=== PATIENT | female | born 1955 | race Caucasian/White ===

== ENCOUNTER 2020-05-23 16:27 | Inpatient (IN) | payer MEDICARE, BC ==
[~2020-05-23] VITALS: Ht 157.5 cm; Wt 50.3 kg
[2020-05-23 18:29] LABS: ANION GAP 14.4 mmol/L (8-16); CALCIUM 8.6 mg/dL (8.5-10.1); CARBON DIOXIDE 22.4 mmol/L (21.0-32.0); POTASSIUM - SERUM 4.8 mmol/L (3.5-5.1)
[2020-05-23 18:35] LABS: ALBUMIN 2.9 g/dL (3.4-5.0); BILIRUBIN - TOTAL 0.29 mg/dL (0.2-1.3); PROTEIN - SERUM 5.4 g/dL (6.4-8.2)
[2020-05-23 19:09] LABS: BASOPHILS 0.1 % (0-2); EOSINOPHILS 1.5 % (0-7); HEMATOCRIT 34.9 % (36.0-48.0); HEMOGLOBIN 11.3 g/dL (12-16); IMMATURE GRANULOCYTES 0.1 % (0-5); LYMPHOCYTE ABS# 2.88 10x3/uL (1.18-3.74); LYMPHOCYTES 36.7 % (15-50); MCH 29.8 pg (26.0-34.0); MCHC 32.4 g/dL (31.0-37.0); MCV 92.1 fL (80.0-100.0); MEAN PLATELET VOLUME 8.9 fL (7.4-10.4); MONOCYTES 9.6 % (2-11); NEUTROPHIL ABS# 4.08 10x3/uL (1.56-6.13); PLATELET COUNT 141 10x3/uL (130-400); RBC 3.79 10x6/uL (4.00-5.40); RDW 15.9 % (11.5-14.5); WBC 7.9 10x3/uL (4.8-10.8)
[2020-05-23 19:35] VITALS: BP 110/77
[2020-05-23 22:19] LABS: APTT 22.5 SECONDS (22.8-39.4); INR 1.17 (0.85-1.17); PROTIME 13.8 SECONDS (11.6-15.0)
[2020-05-23 22:22] LABS: % SATURATION 12 % (15-55); IRON 34 ug/dl (35-150); TOTAL IRON BIND CAPACITY 262 ug/dl (260-445); UNSAT IRON BIND CAPACITY 228 ug/dl (150-375)
[2020-05-23 22:52] LABS: MAGNESIUM - SERUM 1.8 mg/dL (1.8-2.4)
[2020-05-24] VITALS (13 sets, daily range): BP systolic 112–147; BP diastolic 0–82; Ht 157.5 cm; Wt 50.3 kg
[2020-05-24] MEDS ORDERED: XIFAXAN550 MG PO (02:12)
[2020-05-24] MEDS ORDERED: PREDNISONE5 MG PO (02:13)
[2020-05-24] MEDS ORDERED: VENTOLIN HFA [SP8 GM (02:14)
[2020-05-24] MEDS ORDERED: CELEXA10 MG PO (02:14)
[2020-05-24] MEDS ORDERED: NEURONTIN600 MG PO (02:31)
[2020-05-24] MEDS ORDERED: FOLIC ACID1 MG PO (02:31)
[2020-05-24] MEDS ORDERED: MAG-OX 400 MG400 MG PO (02:32)
[2020-05-24] MEDS ORDERED: CARAFATE1 G PO (02:33)
[2020-05-24] MEDS ORDERED: BACTRIM 400-801 TAB PO (02:34)
[2020-05-24] MEDS ORDERED: ULTRAM50 MG PO (02:34)
[2020-05-24] MEDS ORDERED: VALCYTE450 MG PO (02:35)
--- NOTE | 2020-05-24 04:16 | NUR ---
PATIENT ALLOWED IBRAHIM PLACEMENT AFTER ADMINISTRATION OF ATIVAN. 16 FR IBRAHIM PLACED WITH STERILE TECHNIQUE WITHOUT COMPLICATION. URINE SAMPLE COLLECTED. PATIENT REPORTED MINIMAL PAIN WITH INSERTION. RESTING COMFORTABLY AT THIS TIME. MED LIST BROUGHT BY , UPDATED IN COMPUTER. COPY PLACED IN CHART, ORIGINAL RETURNED TO PATIENT. PAGED CONSULTS FOR GI, NEPHRO. WILL.CONTINUE TO MONTR.
[2020-05-24 05:07] LABS: BASOPHILS 0.3 % (0-2); EOSINOPHILS 2.4 % (0-7); HEMATOCRIT 29.2 % (36.0-48.0); HEMOGLOBIN 9.3 g/dL (12-16); LYMPHOCYTES 41.2 % (15-50); MCH 29.4 pg (26.0-34.0); MCHC 31.8 g/dL (31.0-37.0); MCV 92.4 fL (80.0-100.0); MEAN PLATELET VOLUME 8.7 fL (7.4-10.4); MONOCYTES 10.6 % (2-11); NEUTROPHIL ABS# 2.87 10x3/uL (1.56-6.13); NEUTROPHILS 45.5 % (40-80); PLATELET COUNT 123 10x3/uL (130-400); RBC 3.16 10x6/uL (4.00-5.40); WBC 6.3 10x3/uL (4.8-10.8)
[2020-05-24 05:23] LABS: BILIRUBIN NEGATIVE (NEGATIVE); KETONE NEGATIVE (NEGATIVE); NITRITE NEGATIVE (NEGATIVE); UROBILINOGEN NORMAL mg/dL (< 2)
[2020-05-24 05:24] LABS: BACTERIA MODERATE HPF (NONE SEEN); SQUAMOUS EPITHELIAL 0-5 HPF (0-4); WHITE CELLS - URINE 0-5 HPF (0-4)
[2020-05-24 05:37] LABS: ANION GAP 12.6 mmol/L (8-16); BILIRUBIN - TOTAL 0.29 mg/dL (0.2-1.3); CALCIUM 8.1 mg/dL (8.5-10.1); CARBON DIOXIDE 23.7 mmol/L (21.0-32.0); CREATININE - SERUM 1.8 mg/dL (0.6-1.3); MAGNESIUM - SERUM 1.6 mg/dL (1.8-2.4); POTASSIUM - SERUM 4.3 mmol/L (3.5-5.1); PROTEIN - SERUM 6.1 g/dL (6.4-8.2)
[2020-05-24 05:47] LABS: ALBUMIN 3.9 g/dL (3.4-5.0)
--- NOTE | 2020-05-24 06:39 | NUR ---
800CC DRAINED FROM IBRAHIM CATHETER AFER PLACEMENT.
--- NOTE | 2020-05-24 11:25 | NUR ---
PATIENT TAKEN TO IR FOR THORACENTISIS
--- NOTE | 2020-05-24 12:16 | NUR ---
PATIENT RETURNED TO HER ROOM FORM IR
--- NOTE | 2020-05-24 13:29 | NUR ---
PATIENT C/O NAUSEA NOTIFIED MERCHANT MILLER STATED SHE WILL ORDER HER SOMETHIN IN ADDITION TO THE ZOFRAN INFUSION
[2020-05-24 13:36] LABS: PROTEIN - BODY FLUID 3.2 G/DL
[2020-05-24 15:29] LABS: MACROPHAGES BF 8 %; NEUT - BF 85 %
[2020-05-25 00:38] VITALS: BP 157/73
--- NOTE | 2020-05-25 01:38 | NUR ---
PATIENT VOMITING WITH ZOFRAN DRIP. ORDERED RECIEVED FOR PHENERGAN IM X1. ADMINISTERED, PATIENT REPORTS RELIEF. MEDICATED FOR PAIN PER ORDERS. RESTING COMFORTABLY AT THIS TIME.
[2020-05-25 04:57] VITALS: BP 132/70
[2020-05-25 06:26] LABS: BASOPHILS 0.1 % (0-2); EOSINOPHILS 1.4 % (0-7); IMMATURE GRANULOCYTES 0.1 % (0-5); LYMPHOCYTE ABS# 1.94 10x3/uL (1.18-3.74); LYMPHOCYTES 26.6 % (15-50); MCH 29.7 pg (26.0-34.0); MCHC 32.2 g/dL (31.0-37.0); MCV 92.4 fL (80.0-100.0); MEAN PLATELET VOLUME 8.8 fL (7.4-10.4); MONOCYTES 8.8 % (2-11); PLATELET COUNT 141 10x3/uL (130-400); RDW 15.7 % (11.5-14.5); WBC 7.3 10x3/uL (4.8-10.8)
[2020-05-25 06:28] LABS: HEMATOCRIT 35.1 % (36.0-48.0); HEMOGLOBIN 11.3 g/dL (12-16)
[2020-05-25 07:02] LABS: ALBUMIN 3.3 g/dL (3.4-5.0); ANION GAP 18.2 mmol/L (8-16); BILIRUBIN - TOTAL 0.33 mg/dL (0.2-1.3); CALCIUM 8.4 mg/dL (8.5-10.1); CARBON DIOXIDE 19.1 mmol/L (21.0-32.0); CREATININE - SERUM 1.5 mg/dL (0.6-1.3); MAGNESIUM - SERUM 1.6 mg/dL (1.8-2.4); POTASSIUM - SERUM 4.3 mmol/L (3.5-5.1); PROTEIN - SERUM 5.3 g/dL (6.4-8.2)
[2020-05-25 07:08] VITALS: BP 183/99
[2020-05-25 11:52] VITALS: BP 176/92
--- NOTE | 2020-05-25 14:28 | NUR ---
PATIENT REFUSED MEDS STATES LONG HER STOMACH IS HURTING SHE CAN'T TAKE ANY MEDS. C/O ABD REBECCAS MARTIRIN GIVEN PER MD ORDER.
[2020-05-25 15:34] VITALS: BP 176/89
--- NOTE | 2020-05-25 19:41 | NUR ---
PATIENT REFUSED PO MEDICATION EXCEPT PAIN MEDICATION. SAID SHE COULD NOT TOLERATE DUE TO UNRELIEVED NAUSEA. ZOFRAN DRIP INFUSING TO LEFT ARM WITH NS FLUIDS. ALSO STATES PAIN IS UNRELIEVED WITH DILAUDID. PIV TO RIGHT WRIST LEAKING, D/C'D, CATHETER INTACT. SISTER AT BEDSIDE. WILL CONTINUE TO MONITOR.
[2020-05-25 20:02] VITALS: BP 140/65
--- NOTE | 2020-05-25 21:52 | NUR ---
PATIENT REQUESTED MEDICATION FOR SLEEP. RECIEVED ORDER FOR MELATONIN. ADMINISTERED WITH PRN LEVSIN FOR NAUSEA. WILL CONTINUE TO MONITOR.
--- NOTE | 2020-05-25 22:20 | NUR ---
PATIENT SISTER SUKUMAR RODRIGUEZ REQUESTED NUMBER IN SYSTEM IN CASE BROTHER CANT BE REACHED. [phone]
--- NOTE | 2020-05-25 22:30 | NUR ---
PATIENT'S SISTER REPORTS THAT THEIR OTHER SISTER RECENTLY FROM PERITONEAL CANCER AND EXPRESSED CONCERNS THAT THE PATIENT MIGHT ALSO SUFFER FROM THE SAME. RECOMMENDED THAT THEY DISCUSS THIS WITH THE MD. WILL PASS ON TO DAY SHIFT SO THEY ARE AWARE OF FAMILY HX.
[2020-05-26 00:41] VITALS: BP 130/86
--- NOTE | 2020-05-26 00:51 | NUR ---
PATIENT AWAKE BUT DROWSY. ORIENTED TO PERSON, PLACE AND SITUATION. GAIT UNSTEADY. SLURRED SPEECH AND SOME DIFFICULTY SELECTING WORDS NOTED. FLUIDS INFUSING TO PIV TO RIGHT AC. ON 2L NASAL CANNULA. BED ALARM ON. BED IN LOW POSITION. CALL LIGHT IN REACH. OREINTED TO ROOM. FALL EDUCATION PROVIDED.
[2020-05-26 04:52] VITALS: BP 162/69
[2020-05-26 06:23] LABS: BASOPHILS 0.2 % (0-2); EOSINOPHILS 2.5 % (0-7); HEMATOCRIT 34.2 % (36.0-48.0); IMMATURE GRANULOCYTES 0.3 % (0-5); LYMPHOCYTE ABS# 1.27 10x3/uL (1.18-3.74); LYMPHOCYTES 19.6 % (15-50); MCH 29.6 pg (26.0-34.0); MCHC 32.2 g/dL (31.0-37.0); MCV 92.2 fL (80.0-100.0); MEAN PLATELET VOLUME 8.6 fL (7.4-10.4); MONOCYTES 10.8 % (2-11); NEUTROPHIL ABS# 4.33 10x3/uL (1.56-6.13); NEUTROPHILS 66.6 % (40-80); PLATELET COUNT 117 10x3/uL (130-400); RBC 3.71 10x6/uL (4.00-5.40); RDW 15.8 % (11.5-14.5); WBC 6.5 10x3/uL (4.8-10.8)
[2020-05-26 06:52] LABS: ALBUMIN 2.8 g/dL (3.4-5.0); ANION GAP 15.5 mmol/L (8-16); BILIRUBIN - TOTAL 0.3 mg/dL (0.2-1.3); CARBON DIOXIDE 19.5 mmol/L (21.0-32.0); CREATININE - SERUM 1.4 mg/dL (0.6-1.3); MAGNESIUM - SERUM 1.5 mg/dL (1.8-2.4); PROTEIN - SERUM 4.9 g/dL (6.4-8.2)
--- NOTE | 2020-05-26 08:45 | NUR ---
ASSESSMENT PER FLOW SHEET. PATIENT IS WITHOUT DISTRESS. COMPLAINS OF LOWER ABDOMINAL PAIN AND WANTS PAIN MEDS WHEN SHE CAN HAVE THEM.MONITOR FOR NEEDS.
[2020-05-26 09:33] VITALS: BP 141/75
[2020-05-26 12:23] VITALS: BP 132/64
[2020-05-26] MEDS ORDERED: REGLAN5 MG PO (14:46)
[2020-05-26] MEDS ORDERED: NYSTATIN100000 UN4 PO (14:46)
[2020-05-26] MEDS ORDERED: CARDIZEM30 MG PO (14:47)
[2020-05-26] MEDS ORDERED: IMIPRAMINE10 MG PO (14:48)
[2020-05-26] MEDS ORDERED: ZOFRAN ODT4 MG/UDTAB PO (14:48)
[2020-05-26] MEDS ORDERED: LEVSINEX/LEV0.375 M1 PO (14:49)
[2020-05-26] MEDS ORDERED: TACROLIMUS ANHYD1 MG PO ×2 (14:50→14:51)
[2020-05-26] MEDS ORDERED: CELEXA10 MG PO (14:55)
--- NOTE | 2020-05-26 15:05 | NUR ---
MED REC UPDATED WITH PATIENT AND FAMILY.
[2020-05-26 16:00] VITALS: BP 140/74
--- NOTE | 2020-05-26 17:30 | NUR ---
REPORTS PASSING GAS. SHE IS WITHOUT CHANGE FROM INITIAL ASSESSMENT. CONT PLAN OF CARE
[2020-05-26 19:44] VITALS: BP 159/87
--- NOTE | 2020-05-26 22:53 | NUR ---
PATIENT CONTINUES TO REPORT PAIN AND NAUSEA. NEW MEDICATION REVIEWED WITH PATIENT. ATE SOME CRACKERS A BEDTIME SNACK, TOLERATED WELL. WILL CONTINUE TO MONITOR.
[2020-05-27 08:36] VITALS: BP 124/67
--- NOTE | 2020-05-27 09:10 | NUR ---
MD ORDERED BLADDER SCAN FOR PATIENT. NOTIFIED MD FINANCE VICE PRESIDENT THAT PATIENT HAS IBRAHIM IN PLACE SINCE ADMISSION. NO NEW ORDERS.
[2020-05-27 10:35] LABS: ALBUMIN 2.5 g/dL (3.4-5.0); BILIRUBIN - TOTAL 0.16 mg/dL (0.2-1.3); CALCIUM 8.2 mg/dL (8.5-10.1); CARBON DIOXIDE 23.4 mmol/L (21.0-32.0); CREATININE - SERUM 1.7 mg/dL (0.6-1.3); MAGNESIUM - SERUM 1.6 mg/dL (1.8-2.4); PROTEIN - SERUM 5.3 g/dL (6.4-8.2)
[2020-05-27 10:36] LABS: ANION GAP 9.8 mmol/L (8-16); POTASSIUM - SERUM 3.2 mmol/L (3.5-5.1)
[2020-05-27 10:37] LABS: BASOPHILS 0.1 % (0-2); EOSINOPHILS 3.6 % (0-7); HEMATOCRIT 33.1 % (36.0-48.0); HEMOGLOBIN 10.7 g/dL (12-16); IMMATURE GRANULOCYTES 0.3 % (0-5); LYMPHOCYTES 25.4 % (15-50); MCH 29.9 pg (26.0-34.0); MCHC 32.3 g/dL (31.0-37.0); MCV 92.5 fL (80.0-100.0); MONOCYTES 12.1 % (2-11); NEUTROPHIL ABS# 3.91 10x3/uL (1.56-6.13); NEUTROPHILS 58.5 % (40-80); PLATELET COUNT 124 10x3/uL (130-400); RBC 3.58 10x6/uL (4.00-5.40); RDW 15.9 % (11.5-14.5); WBC 6.7 10x3/uL (4.8-10.8)
[2020-05-27 12:26] VITALS: BP 156/75
--- NOTE | 2020-05-27 12:40 | NUR ---
PT C/O ABD DISTENTION AND NO URINE OUTPUT IBRAHIM CURRENLTY HAS 100ML IN HER BAG. BLADDER SCAN DONE AND RESULTS OF 45ML IN BLADDER. INFORMED PATEINT AND FAMILY I WILL NOTIFY MD OF CONCERNS.
--- NOTE | 2020-05-27 13:38 | NUR ---
PATIENT VICE PRESIDENT OF BUSINESS DEVELOPMENT TO WALK IN [place] 250 FEET.
--- NOTE | 2020-05-27 14:00 | NUR ---
NOTIFIED LIVESTOCK HAULIER OF PATIENT C/O ABD DISTENTION AND DISCOMFORT. FAMILY REQUESTING ANOTHER PARACENTISIS TO REMOVE FLUID FROM HER STOMACH. LIVESTOCK HAULIER STATES SHE WILL ORDER A ABD X RAY AND NOTIFY IR. PATIENT AND FAMILY NOTIFIED.
--- NOTE | 2020-05-27 14:15 | NUR ---
Nutrition follow-up: Pt receiving a regular diet; po intake continues to be poor due to nausea, vomiting Abdomen is distended and uncomfortable per nurse Labs reviewed Wt: 111# +BM May need to start ProcalAmine PPN @ 50 ml/hr due to pts poor po intake RDN follow-up: 05/29/20
[2020-05-27 17:00] VITALS: BP 128/76
--- NOTE | 2020-05-27 19:36 | NUR ---
PATIENT BP 228/78. HR 83. NOTIFIED CLOCK MAKER. SEE NEW ORDERS. WILL RECHECK BP AFTER MED ADMINISTRATION.
[2020-05-27 20:00] VITALS: BP 133/61
[2020-05-28 04:00] VITALS: BP 118/61
[2020-05-28 06:12] LABS: BASOPHILS 0.2 % (0-2); EOSINOPHILS 3.6 % (0-7); HEMATOCRIT 28.1 % (36.0-48.0); HEMOGLOBIN 8.9 g/dL (12-16); IMMATURE GRANULOCYTES 0.2 % (0-5); LYMPHOCYTE ABS# 1.66 10x3/uL (1.18-3.74); LYMPHOCYTES 31.8 % (15-50); MCH 29.3 pg (26.0-34.0); MCHC 31.7 g/dL (31.0-37.0); MCV 92.4 fL (80.0-100.0); MEAN PLATELET VOLUME 8.9 fL (7.4-10.4); MONOCYTES 11.3 % (2-11); NEUTROPHIL ABS# 2.76 10x3/uL (1.56-6.13); NEUTROPHILS 52.9 % (40-80); PLATELET COUNT 118 10x3/uL (130-400); RBC 3.04 10x6/uL (4.00-5.40); RDW 16.3 % (11.5-14.5); WBC 5.2 10x3/uL (4.8-10.8)
[2020-05-28 06:40] LABS: ALBUMIN 2.1 g/dL (3.4-5.0); ANION GAP 10.9 mmol/L (8-16); BILIRUBIN - TOTAL 0.12 mg/dL (0.2-1.3); CALCIUM 7.9 mg/dL (8.5-10.1); CARBON DIOXIDE 21.6 mmol/L (21.0-32.0); CREATININE - SERUM 1.8 mg/dL (0.6-1.3); MAGNESIUM - SERUM 1.9 mg/dL (1.8-2.4); POTASSIUM - SERUM 3.5 mmol/L (3.5-5.1); PROTEIN - SERUM 4.5 g/dL (6.4-8.2)
[2020-05-28 08:26] VITALS: BP 97/57
[2020-05-28 12:43] VITALS: BP 140/78
--- NOTE | 2020-05-28 14:08 | NUR ---
SPOKE WITH ERNIE PINZON CHIEF TRANSFER AND PUMPHOUSE OPERATOR- PT FEELING BETTER AFTER BM- HOLD PARA FOR NOW. INSTRUCTED ERNIE WE WERE AVAILABLE FOR HER NEEDS.
--- NOTE | 2020-05-28 15:08 | NUR ---
WALKED 3 TIMES WITH FAMILY ALREADY WILL OFFER TO WALK HER TOMRROW
--- NOTE | 2020-05-28 16:10 | NUR ---
SPOKE WITH IR REGARDING PATIENT C/O OF DISTENTION AND REQUESTING TO HAVE FLUID REMOVED FROM HER ABD. IR NURSE TO TALK TO PATIENT. WILL CALL TO GET ORDER FOR ULTRASOUND TO CHECK FOR ABD FLUID.
--- NOTE | 2020-05-28 16:16 | NUR ---
NOTIFIED SILK OPENER OF PATIENT C/O PAIN AND DISTENTION NEW ORDER FOR ULTRASOUND AND INCREASE PAIN MEDICATIONS TO Q4HRS.
[2020-05-28 17:45] VITALS: BP 130/91
[2020-05-28 20:00] VITALS: BP 124/64
[2020-05-29] VITALS (11 sets, daily range): BP systolic 111–155; BP diastolic 54–74
[2020-05-29 06:25] LABS: BASOPHILS 0.2 % (0-2); EOSINOPHILS 2.9 % (0-7); HEMATOCRIT 29.4 % (36.0-48.0); HEMOGLOBIN 9.3 g/dL (12-16); IMMATURE GRANULOCYTES 0.3 % (0-5); LYMPHOCYTE ABS# 2.08 10x3/uL (1.18-3.74); LYMPHOCYTES 33.2 % (15-50); MCH 29.7 pg (26.0-34.0); MCHC 31.6 g/dL (31.0-37.0); MCV 93.9 fL (80.0-100.0); MEAN PLATELET VOLUME 9.2 fL (7.4-10.4); NEUTROPHIL ABS# 3.22 10x3/uL (1.56-6.13); NEUTROPHILS 51.4 % (40-80); PLATELET COUNT 124 10x3/uL (130-400); RBC 3.13 10x6/uL (4.00-5.40); RDW 16.5 % (11.5-14.5); WBC 6.3 10x3/uL (4.8-10.8)
[2020-05-29 06:56] LABS: ALBUMIN 2.2 g/dL (3.4-5.0); CALCIUM 7.8 mg/dL (8.5-10.1); CARBON DIOXIDE 21.1 mmol/L (21.0-32.0); PROTEIN - SERUM 4.3 g/dL (6.4-8.2)
[2020-05-29 06:58] LABS: BILIRUBIN - TOTAL 0.08 mg/dL (0.2-1.3); POTASSIUM - SERUM 4.1 mmol/L (3.5-5.1)
--- NOTE | 2020-05-29 08:00 | NUR ---
RECIEVED BEDSIDE REPORT. PATIENT IN BED DENIES NEEDS AT THIS TIME. BED LOW POSITION, CALL LIGHT IN REACH. WILL CONTINUE TO MONITOR.
[2020-05-29 09:46] LABS: INR 1.23 (0.85-1.17); PROTIME 14.4 SECONDS (11.6-15.0)
[2020-05-29 10:00] LABS: APTT 39.3 SECONDS (22.8-39.4)
[2020-05-29 13:12] LABS: ALPHA FETOPROTEIN -(TUMOR MRK) <0.9 ng/mL (0.0-8.3)
--- NOTE | 2020-05-29 13:22 | NUR ---
Nutrition follow-up: Diet advanced to regular; pt still with poor po intake +BM; pt feeling better after Labs reviewed Wt: 111# Recommendations: RDN will order Ensure with meals Pt may benefit from ProcalAmine 50 ml/hr short term due to poor po intake at this time RDN follow-up: 05/31/20
[2020-05-29 14:10] LABS: CA 19-9 3548 U/mL (0-35)
--- NOTE | 2020-05-29 16:03 | NUR ---
SPOKE TO DR. ALATORRE ABOUT ORDER FOR IBRAHIM TO BE DISCONTINUED. SHE SAID TO LEAVE IBRAHIM IN PLACE.
[2020-05-30] VITALS: BP 164/71
--- NOTE | 2020-05-30 00:42 | NUR ---
PT CASTING MACHINE ADJUSTER LIGHT, AGITATED DUE TO HAVING A HEADACHE AND DEMANDING MEDICATION. SHE WAS UPSET AND ANGRY THAT NURSE WAS ATTENDING TO OTHER PATIENT AND TOLD ME SHE MUST GET HER MEDICATION FIRST. PT EXPRESS THAT SHE WAS UNHAPPY AND STATED "I WILL TALK TO SOMEONE ABOUT YOU, TO THE MANAGER STARS ABOUT THIS INCIDENT. I WILL NEVER BE BACK TO THIS HOSPITAL". ZACK WAS INFORMED ABOUT THE SITUATION. MEDICATION WAS GIVEN TO PT AND SHE WAS DEMANDING THAT THE PATIENT IN THE ROOM ACROSS FROM HER WOULD STOP SCREAMING DUE TO HER HEADACHE AND SHE WANTED HIM GONE. WILL CONT TO MONITOR.
--- NOTE | 2020-05-30 01:41 | NUR ---
PT FINE GRADE BULLDOZER OPERATOR LIGHT SHE CONT TO COMPLAIN OF A HEADACHE MED GIVEN. WILL CONT TO MONITOR.
--- NOTE | 2020-05-30 03:40 | NUR ---
I have reviewed this patient and I concur with the Shift Assessment completed by the Licensed Practical Nurse today this shift.
[2020-05-30 04:00] VITALS: BP 111/55
[2020-05-30 06:02] LABS: BASOPHILS 0.1 % (0-2); EOSINOPHILS 3.1 % (0-7); HEMATOCRIT 30.3 % (36.0-48.0); HEMOGLOBIN 9.3 g/dL (12-16); IMMATURE GRANULOCYTES 0.4 % (0-5); LYMPHOCYTES 36.1 % (15-50); MCH 29.2 pg (26.0-34.0); MCHC 30.7 g/dL (31.0-37.0); MEAN PLATELET VOLUME 8.7 fL (7.4-10.4); MONOCYTES 11.4 % (2-11); NEUTROPHIL ABS# 3.66 10x3/uL (1.56-6.13); NEUTROPHILS 48.9 % (40-80); PLATELET COUNT 116 10x3/uL (130-400); RBC 3.19 10x6/uL (4.00-5.40); RDW 16.7 % (11.5-14.5); WBC 7.5 10x3/uL (4.8-10.8)
[2020-05-30 06:40] LABS: ALBUMIN 2.7 g/dL (3.4-5.0); ANION GAP 11.1 mmol/L (8-16); BILIRUBIN - TOTAL 0.21 mg/dL (0.2-1.3); CALCIUM 7.9 mg/dL (8.5-10.1); CARBON DIOXIDE 22.4 mmol/L (21.0-32.0); CREATININE - SERUM 1.9 mg/dL (0.6-1.3); POTASSIUM - SERUM 4.5 mmol/L (3.5-5.1); PROTEIN - SERUM 4.8 g/dL (6.4-8.2)
--- NOTE | 2020-05-30 07:26 | NUR ---
RECIEVED BEDSIDE REPORT. IN BED SLEEPING. AROUSES TO VOICE AND DENIES NEEDS AT THIS TIME. FREE FROM SIGNS OF DISTRESS. BED LOW POSITION, CALL LIGHT IN REACH. IV INFUSING PER MAR. WILL CONTINUE TO MONITOR.
[2020-05-30 08:14] VITALS: BP 138/72
[2020-05-30 09:13] LABS: ANA REFLEX - DIRECT Negative (Negative); HEPATITIS C ANTIBODY <0.1 S/CO RAT (0.0-0.9)
[2020-05-30 12:24] VITALS: BP 158/77
--- NOTE | 2020-05-30 13:13 | NUR ---
IN BED ASLEEP. LEFT ROOM FOR A LITTLE BIT BUT SAYS HE WILL RETURN SOON. FREE FROM SIGNS OF DISTRESS. BED LOW POSITION, CALL LIGHT IN REACH. WILL CONTINUE TO MONITOR.
[2020-05-30 18:46] VITALS: BP 152/72
[2020-05-30 20:00] VITALS: BP 135/70
--- NOTE | 2020-05-31 02:51 | NUR ---
RECIEVED BEDSIDE REPORT. PT AWAKE IN BED. IV REMOVED INTACT. UNABLE TO PLACE NEW IV ON AFTER SEVERAL ATTEMPT. PT CONSULTATION FOR PICC/CVL REQUEST PT WAS INFORMED AND ONE TIME DOSE PO FOR ANXIETY MED GIVEN. WILL CONT TO MONITOR
[2020-05-31 04:00] VITALS: BP 146/81
--- NOTE | 2020-05-31 05:05 | NUR ---
I have reviewed this patient and I concur with the Shift Assessment completed by the Licensed Practical Nurse today this shift.
[2020-05-31 06:19] LABS: ALBUMIN 2.6 g/dL (3.4-5.0); BILIRUBIN - TOTAL 0.23 mg/dL (0.2-1.3); CARBON DIOXIDE 21.1 mmol/L (21.0-32.0); CREATININE - SERUM 1.7 mg/dL (0.6-1.3); POTASSIUM - SERUM 4.1 mmol/L (3.5-5.1); PROTEIN - SERUM 4.5 g/dL (6.4-8.2)
[2020-05-31 06:51] LABS: BASOPHILS 0.2 % (0-2); EOSINOPHILS 1.7 % (0-7); HEMATOCRIT 31.7 % (36.0-48.0); IMMATURE GRANULOCYTES 0.4 % (0-5); LYMPHOCYTE ABS# 2.49 10x3/uL (1.18-3.74); LYMPHOCYTES 27.6 % (15-50); MCH 29.5 pg (26.0-34.0); MCHC 31.5 g/dL (31.0-37.0); MCV 93.5 fL (80.0-100.0); MEAN PLATELET VOLUME 9.3 fL (7.4-10.4); MONOCYTES 11.5 % (2-11); NEUTROPHIL ABS# 5.29 10x3/uL (1.56-6.13); NEUTROPHILS 58.6 % (40-80); PLATELET COUNT 134 10x3/uL (130-400); RBC 3.39 10x6/uL (4.00-5.40); RDW 16.7 % (11.5-14.5)
--- NOTE | 2020-05-31 07:58 | NUR ---
RECIEVED BEDSIDE REPORT. SLEEPING IN BED. AROUSES TO VOICE, FREE FROM SIGNS OF DISTRESS. BED LOW POSITION, CALL LIGHT IN REACH. WILL CONTINUE TO MONITOR.
[2020-05-31 09:23] VITALS: BP 154/86
[2020-05-31] MEDS ORDERED: PROTONIX40 MG PO (11:41)
[2020-05-31] MEDS ORDERED: MIRALAX17 GM PO (11:41)
[2020-05-31] MEDS ORDERED: ZOFRAN ODT4 MG/UDTAB PO (11:42)
[2020-05-31] MEDS ORDERED: XYLOCAINE HCL 2%5 ML TOPICAL (11:42)
[2020-05-31] MEDS ORDERED: CATAPRES TTS-3 TRANSDERM (11:43)
[2020-05-31] MEDS ORDERED: GABAPENTIN100 MG PO (11:43)
[2020-05-31] MEDS ORDERED: Senokot-S Tablet PO (11:43)
[2020-05-31 12:31] VITALS: BP 137/55
--- NOTE | 2020-05-31 12:50 | MORECARE ---
CASE MANAGEMENT DISCHARGE SUMMARY PATIENT: LOVE FERNANDES UNIT: [id number] ADM DATE: 05/23/20 AGE: 64 : 56 SEX: F ROOM/BED: D.2229 AUTHOR: VINNIE,DOC PHYSICIAN: REFERRING PHYSICIAN: NEHEMIAH BALDERAS MD DATE OF SERVICE: 05/31/20 Case Management Discharge Planning Summary COMMENTS ENTERED DATE: 05/30/20 17:19 CT COMMENT TYPE: Discharge Planning REVIEWER: Janessa Field CM called [facility] for transfer for higher level of care. [facility] is currently on bed max and not accepting patients. They recommend we use another hospital or call them back daily until they are off of bed max. CM to follow and assist as needed. DCP REVIEW SUMMARY ANTICIPATED D/C DATE: EXPECTED LOS : CASE STATUS: DCP Initiated INITIAL REVIEW: 05/28/2020 INITIAL REVIEWER: Janessa Field FINAL DISCHARGE DISPOSITION: : FINAL REVIEWER: FINAL REVIEW DATE: LACE: UPDATED BY: [email or web address]: Janessa Field on 05/28/20 13:46 CT QUESTION: ANSWER Length of Stay (Prior Admit): None Acute Admission: Inpatient Comorbidity: (2PTS) Mld Liver DZ, DM W/End Organ Damage, CHF, COPD, CA, Leuk, Lympho, Any Tumor, Mod to Sev Renal Comorbidity Total Score 2 PT Emergency Room visits during previous 6 months: 0 Visits DCP Focus Questions & Answers - Added on: QUESTION: ANSWER : PATIENT: LOVE FERNANDES ENCOUNTER: [id number] MEDICAL RECORD#: [id number] ADMISSION DATE: 05/23/2020 DISCHARGE DATE: ATTENDING MD: NEHEMIAH GARG : AGE: 64 MARITAL STATUS: M DC PLAN ID: [id number] FACILITY: [facility] PRINTED ON: 05/31/20 12:50 CT All edits/amendments must be made on the electronic document DICTATION DATE: 05/31/20 125 MACHINE OPERATOR TRANSPLANTER: KYLIE 05/31/20 1250 RPT#: [id number] DC DATE: STATUS: ADM IN [facility] [address] [place] [address] END OF REPORT
--- NOTE | 2020-05-31 14:03 | MORECARE ---
CASE MANAGEMENT DISCHARGE SUMMARY PATIENT: LOVE FERNANDES UNIT: [id number] ADM DATE: 05/23/20 AGE: 64 : 56 SEX: F ROOM/BED: D.2229 AUTHOR: VINNIE,DOC PHYSICIAN: REFERRING PHYSICIAN: NEHEMIAH BALDERAS MD DATE OF SERVICE: 05/31/20 Case Management Discharge Planning Summary COMMENTS ENTERED DATE: 05/31/20 13:57 CT COMMENT TYPE: Discharge Planning REVIEWER: Janessa Field CM SPOKE WITH PATIENT'S AND SISTER SUKUMAR TODAY. THEY WOULD LIKE PATIENT TRANSFERRED TO [facility] IN [place] IF POSSIBLE. HER PERFORATING MACHINE OPERATOR IS THERE. I HAVE CALLED [facility] AND SPOKE WITH MARI. WAITING CALL BACK TO SEE IF THEY WILL ACCEPT THE TRANSFER. PATIENT PULM IS DR. MENDOZA. PCP IS ROB IN [place] AND SHE USES [facility]. SHE DOES NOT USE ANY MEDICAL EQUIPMENT AT HOME. CM TO FOLLOW AND ASSIST NEEDED. ENTERED DATE: 05/30/20 17:19 CT COMMENT TYPE: Discharge Planning REVIEWER: Janessa Field CM called [facility] for transfer for higher level of care. [facility] is currently on bed max and not accepting patients. They recommend we use another hospital or call them back daily until they are off of bed max. CM to follow and assist as needed. DCP REVIEW SUMMARY ANTICIPATED D/C DATE: EXPECTED LOS : CASE STATUS: DCP Initiated INITIAL REVIEW: 05/28/2020 INITIAL REVIEWER: Janessa Field FINAL DISCHARGE DISPOSITION: : FINAL REVIEWER: FINAL REVIEW DATE: LACE: UPDATED BY: [id number]: Janessa Field on 05/28/20 13:46 CT QUESTION: ANSWER Length of Stay (Prior Admit): None Acute Admission: Inpatient Comorbidity: (2PTS) Mld Liver DZ, DM W/End Organ Damage, CHF, COPD, CA, Leuk, Lympho, Any Tumor, Mod to Sev Renal Comorbidity Total Score 2 PT Emergency Room visits during previous 6 months: 0 Visits DCP Focus Questions & Answers - Added on: QUESTION: ANSWER : PATIENT: LOVE FERNANDES ENCOUNTER: [id number] MEDICAL RECORD#: [id number] ADMISSION DATE: 05/23/2020 DISCHARGE DATE: ATTENDING MD: NEHEMIAH GARG : AGE: 64 MARITAL STATUS: M DC PLAN ID: [id number] FACILITY: [facility] PRINTED ON: 05/31/20 14:02 CT All edits/amendments must be made on the electronic document DICTATION DATE: 05/31/201401 PSYCHOMETRIST: KYLIE 05/31/201401 RPT#: [id number] DC DATE: STATUS: ADM IN [facility] [address] [place] [address] END OF REPORT
--- NOTE | 2020-05-31 16:12 | MORECARE ---
CASE MANAGEMENT DISCHARGE SUMMARY PATIENT: LOVE FERNANDES UNIT: [id number] ADM DATE: 05/23/20 AGE: 64 : 56 SEX: F ROOM/BED: D.2229 AUTHOR: VINNIE,DOC PHYSICIAN: REFERRING PHYSICIAN: NEHEMIAH BALDERAS MD DATE OF SERVICE: 05/31/20 Case Management Discharge Planning Summary COMMENTS ENTERED DATE: 05/31/20 13:57 CT COMMENT TYPE: Discharge Planning REVIEWER: Janessa Field CM SPOKE WITH PATIENT'S AND SISTER SUKUMAR TODAY. THEY WOULD LIKE PATIENT TRANSFERRED TO [facility] IN [place] IF POSSIBLE. HER RESIDENTIAL SALES ASSOCIATE IS THERE. I HAVE CALLED [facility] AND SPOKE WITH MARI. WAITING CALL BACK TO SEE IF THEY WILL ACCEPT THE TRANSFER. PATIENT PULM IS DR. MENDOZA. PCP IS ROB IN [place] AND SHE USES [facility]. SHE DOES NOT USE ANY MEDICAL EQUIPMENT AT HOME. CM TO FOLLOW AND ASSIST NEEDED. ENTERED DATE: 05/30/20 17:19 CT COMMENT TYPE: Discharge Planning REVIEWER: Janessa Field CM called [facility] for transfer for higher level of care. [facility] is currently on bed max and not accepting patients. They recommend we use another hospital or call them back daily until they are off of bed max. CM to follow and assist as needed. DCP REVIEW SUMMARY ANTICIPATED D/C DATE: EXPECTED LOS : CASE STATUS: DCP Initiated INITIAL REVIEW: 05/28/2020 INITIAL REVIEWER: Janessa Field FINAL DISCHARGE DISPOSITION: : FINAL REVIEWER: FINAL REVIEW DATE: LACE: UPDATED BY: [id number]: Janessa Field on 05/28/20 13:46 CT QUESTION: ANSWER Length of Stay (Prior Admit): None Acute Admission: Inpatient Comorbidity: (2PTS) Mld Liver DZ, DM W/End Organ Damage, CHF, COPD, CA, Leuk, Lympho, Any Tumor, Mod to Sev Renal Comorbidity Total Score 2 PT Emergency Room visits during previous 6 months: 0 Visits DCP Focus Questions & Answers - Added on: QUESTION: ANSWER : PATIENT: LOVE FERNANDES ENCOUNTER: [id number] MEDICAL RECORD#: [id number] ADMISSION DATE: 05/23/2020 DISCHARGE DATE: ATTENDING MD: NEHEMIAH GARG : AGE: 64 MARITAL STATUS: M DC PLAN ID: [id number] FACILITY: [facility] PRINTED ON: 05/31/20 16:11 CT All edits/amendments must be made on the electronic document DICTATION DATE: 05/31/201610 MANAGER TRAINEE: KYLIE 05/31/201610 RPT#: [id number] DC DATE: STATUS: ADM IN [facility] [address] [place] [address] END OF REPORT
[2020-05-31] MEDS ORDERED: TORSEMIDE20 MG PO (16:26)
[2020-05-31 16:36] VITALS: BP 148/90
[2020-05-31 20:29] LABS: SARS-CoV-2 ANTIGEN NEGATIVE- SARS-COV-2 (NEGATIVE)
[2020-05-31 20:33] VITALS: BP 169/87
--- NOTE | 2020-05-31 23:28 | NUR ---
PT DISCHARGE TO [facility] ROOM#761 UN[address], TRANSFER BY [facility]. NO IV IN PLACE. PT INFORMED ABOUT MD FOLLOW UP AND MEDICATIONS.
[2020-06-01 17:08] LABS: MITOCHONDRIAL ANTIBODY <20.0 Units (0.0-20.0); SMOOTH MUSCLE ABS (ACTIN) 6 Units (0-19)
--- NOTE | 2020-06-03 13:23 | MORECARE ---
CASE MANAGEMENT DISCHARGE SUMMARY PATIENT: LOVE FERNANDES UNIT: [id number] ADM DATE: 05/23/20 AGE: 64 : 56 SEX: F ROOM/BED: D.2229 AUTHOR: VINNIE,DOC PHYSICIAN: REFERRING PHYSICIAN: NEHEMIAH BALDERAS MD DATE OF SERVICE: 06/03/20 Case Management Discharge Planning Summary COMMENTS ENTERED DATE: 05/31/20 13:57 CT COMMENT TYPE: Discharge Planning REVIEWER: Janessa Field CM SPOKE WITH PATIENT'S AND SISTER SUKUMAR TODAY. THEY WOULD LIKE PATIENT TRANSFERRED TO [facility] IN [place] IF POSSIBLE. HER LETTERPRESS SETTER IS THERE. I HAVE CALLED [facility] AND SPOKE WITH MARI. WAITING CALL BACK TO SEE IF THEY WILL ACCEPT THE TRANSFER. PATIENT PULM IS DR. MENDOZA. PCP IS ROB IN [place] AND SHE USES [facility]. SHE DOES NOT USE ANY MEDICAL EQUIPMENT AT HOME. CM TO FOLLOW AND ASSIST NEEDED. ENTERED DATE: 05/30/20 17:19 CT COMMENT TYPE: Discharge Planning REVIEWER: Janessa Field CM called [facility] for transfer for higher level of care. [facility] is currently on bed max and not accepting patients. They recommend we use another hospital or call them back daily until they are off of bed max. CM to follow and assist as needed. DCP REVIEW SUMMARY ANTICIPATED D/C DATE: EXPECTED LOS : CASE STATUS: DCP Initiated INITIAL REVIEW: 05/28/2020 INITIAL REVIEWER: Janessa Field FINAL DISCHARGE DISPOSITION: : FINAL REVIEWER: FINAL REVIEW DATE: LACE: UPDATED BY: [email or web address]: Janessa Field on 05/28/20 13:46 CT QUESTION: ANSWER Length of Stay (Prior Admit): None Acute Admission: Inpatient Comorbidity: (2PTS) Mld Liver DZ, DM W/End Organ Damage, CHF, COPD, CA, Leuk, Lympho, Any Tumor, Mod to Sev Renal Comorbidity Total Score 2 PT Emergency Room visits during previous 6 months: 0 Visits DCP Focus Questions & Answers - Added on: QUESTION: ANSWER : PATIENT: LOVE FERNANDES ENCOUNTER: [id number] MEDICAL RECORD#: [id number] ADMISSION DATE: 05/23/2020 DISCHARGE DATE: 05/31/2020 ATTENDING MD: NEHEMIAH GARG : AGE: 64 MARITAL STATUS: M DC PLAN ID: [id number] FACILITY: [facility] PRINTED ON: 06/03/20 13:22 CT All edits/amendments must be made on the electronic document DICTATION DATE: 06/03/20 132 EXTERNAL RELATIONS DIRECTOR: KYLIE 06/03/20 1322 RPT#: [id number] DC DATE:05/31/20 STATUS: DIS IN [facility] [address] [place] [address] END OF REPORT
--- NOTE | 2020-06-03 14:59 | MORECARE ---
CASE MANAGEMENT DISCHARGE SUMMARY PATIENT: LOVE FERNANDES UNIT: [id number] ADM DATE: 05/23/20 AGE: 64 : 57 SEX: F ROOM/BED: D.2229 AUTHOR: VINNIE,DOC PHYSICIAN: REFERRING PHYSICIAN: NEHEMIAH BALDERAS MD DATE OF SERVICE: 06/03/20 Case Management Discharge Planning Summary COMMENTS ENTERED DATE: 05/31/20 13:57 CT COMMENT TYPE: Discharge Planning REVIEWER: Janessa Field CM SPOKE WITH PATIENT'S AND SISTER SUKUMAR TODAY. THEY WOULD LIKE PATIENT TRANSFERRED TO [facility] IN [place] IF POSSIBLE. HER COLORED LIQUID PLASTIC APPLIER IS THERE. I HAVE CALLED [facility] AND SPOKE WITH MARI. WAITING CALL BACK TO SEE IF THEY WILL ACCEPT THE TRANSFER. PATIENT PULM IS DR. MENDOZA. PCP IS ROB IN [place] AND SHE USES [facility]. SHE DOES NOT USE ANY MEDICAL EQUIPMENT AT HOME. CM TO FOLLOW AND ASSIST NEEDED. ENTERED DATE: 05/30/20 17:19 CT COMMENT TYPE: Discharge Planning REVIEWER: Janessa Field CM called [facility] [place] for transfer for higher level of care. [facility] is currently on bed max and not accepting patients. They recommend we use another hospital or call them back daily until they are off of bed max. CM to follow and assist as needed. DCP REVIEW SUMMARY ANTICIPATED D/C DATE: EXPECTED LOS : CASE STATUS: DCP Initiated INITIAL REVIEW: 05/28/2020 INITIAL REVIEWER: Janessa Field FINAL DISCHARGE DISPOSITION: : FINAL REVIEWER: FINAL REVIEW DATE: LACE: UPDATED BY: [id number]: Janessa Field on 05/28/20 13:46 CT QUESTION: ANSWER Length of Stay (Prior Admit): None Acute Admission: Inpatient Comorbidity: (2PTS) Mld Liver DZ, DM W/End Organ Damage, CHF, COPD, CA, Leuk, Lympho, Any Tumor, Mod to Sev Renal Comorbidity Total Score 2 PT Emergency Room visits during previous 6 months: 0 Visits DCP Focus Questions & Answers - Added on: QUESTION: ANSWER : PATIENT: LOVE FERNANDES ENCOUNTER: [id number] MEDICAL RECORD#: [id number] ADMISSION DATE: 05/23/2020 DISCHARGE DATE: 05/31/2020 ATTENDING MD: NEHEMIAH GARG : AGE: 64 MARITAL STATUS: M DC PLAN ID: [id number] FACILITY: [facility] PRINTED ON: 06/03/20 14:59 CT All edits/amendments must be made on the electronic document DICTATION DATE: 06/03/201458 INCINERATOR ATTENDANT: KYLIE 06/03/20 145 RPT#: [id number] DC DATE:05/31/20 STATUS: DIS IN [facility] [address] [place] [address] END OF REPORT
== END 2020-05-31 23:27 | disposition short-term general hospital (02) | DRG 843 ==
LOC: D.MS 16:27
PROVIDERS: Family Medicine; General Practice; Internal Medicine Gastroenterology; Radiology Vascular & Interventional Radiology; ADMIT Family Medicine; ATTEND Family Medicine
PROC: 0W9G3ZZ Drainage of Peritoneal Cavity, Percutaneous Approach (ICD-10-PCS; principal; 2020-05-24 11:30)
PROC: 0W9G3ZZ Drainage of Peritoneal Cavity, Percutaneous Approach (ICD-10-PCS; 2020-05-29)
DX: C79.89 Secondary malignant neoplasm of other specified sites (principal); K65.8 Other peritonitis; R18.8 Other ascites; N39.0 Urinary tract infection, site not specified; Z94.2 Lung transplant status; N17.9 Acute kidney failure, unspecified; J44.9 Chronic obstructive pulmonary disease, unspecified; K21.9 Gastro-esophageal reflux disease without esophagitis; F41.8 Other specified anxiety disorders; M19.90 Unspecified osteoarthritis, unspecified site; K31.84 Gastroparesis; K80.80 Other cholelithiasis without obstruction; D50.9 Iron deficiency anemia, unspecified; N31.9 Neuromuscular dysfunction of bladder, unspecified